=== PATIENT | female | born 1985 | race Caucasian/White ===

== ENCOUNTER 2023-11-06 10:15 | Outpatient (CLI) | payer OTHER, SELFPAY ==
[2023-11-06 18:01] LABS: Chlamydia DNA Amplified* Not Detected (No Detected); GC DNA Amplified* Not Detected (No Detected)
== END 2023-11-06 10:16 | disposition home or self-care (01) ==
PROVIDERS: PCP Family Medicine; Visit Provider Family Medicine
DX: Z11.3 Encounter for screening for infections with a predominantly sexual mode of transmission (principal); I10 Essential (primary) hypertension; E11.9 Type 2 diabetes mellitus without complications; Z13.29 Encounter for screening for other suspected endocrine disorder
CPT/HCPCS: 80053; 80061; 84443; 86703; 87491; 87591

== ENCOUNTER 2023-12-13 10:48 | Outpatient (CLI) | payer OTHER, SELFPAY ==
--- NOTE | 2023-12-13 11:00 | CT_ITS ---
Patient: CHRIS SANTORO Facility:?[facility] Patient ID:?[id number] Site Patient ID:?[id number]. Site :?[id number] Study:?CT-Sinus W/O-12/13/2023 11:30:22 AM Ordering Physician:BRUCE Final Report: Indication: Chronic sinus disease Technique: Performed without IV contrast Comparison: None available Findings: Frontal sinuses: Incompletely developed frontal sinuses. Ethmoid sinuses: Clear. Maxillary sinuses: Mucosal thickening in both maxillary sinuses, left greater than right. The maxillary sinus drainage pathways are patent on both sides. Sphenoid sinuses: Clear, including both sphenoethmoidal recesses. Nasal Cavity: Slight leftward curvature of the nasal septum. No nasal polyps. Paradoxical turn of the left middle turbinate. No TMJ abnormalities identified. The visualized portions of the orbits, intracranial contents and upper soft tissue neck are grossly negative. Impression: 1. Mild bilateral maxillary sinus disease. 2. Slight focal leftward curvature of the nasal septum. Please note that all CT scans at this facility use dose modulation, iterative reconstruction, and/or weight-based dosing when appropriate to reduce radiation dose to as low as reasonably achievable. Dictated by Richie Corral MD @ 12/13/2023 11:57:01 AM Signed by:?Richie Corral MD @12/13/2023 11:57:01 AM (Electronic Signature)
== END 2023-12-13 10:49 | disposition home or self-care (01) ==
LOC: CT 10:49
PROVIDERS: PCP Family Medicine; Visit Provider Otolaryngology
DX: J32.9 Chronic sinusitis, unspecified (principal); J32.0 Chronic maxillary sinusitis; J34.2 Deviated nasal septum
CPT/HCPCS: 70486

== ENCOUNTER 2024-07-24 11:23 | Outpatient (CLI) | payer OTHER, SELFPAY | END 2024-07-24 11:24 | disposition home or self-care (01) | LOC: LKVREF 11:25 | PROVIDERS: PCP Family Medicine; Visit Provider Family Medicine | DX: Z01.818 Encounter for other preprocedural examination (principal) | CPT/HCPCS: 80048 ==

== ENCOUNTER 2024-08-14 11:26 | Day surgery (SDC) | payer OTHER, SELFPAY ==
[2024-08-14] VITALS (12 sets, daily range): BP systolic 119–144; BP diastolic 65–94; PULSE 70–91; RESP 14–20; TEMP 36.1–36.7; O2SAT 96–99; BMI 28.1
[2024-08-14 12:07] LABS: Ur HCG Qualitative* Negative (Negative)
[2024-08-14] MEDS: 0.9 % SODIUM CHLORIDE 500 ML 500 ML 100 ML IV (12:44)
[2024-08-14] MEDS: MUPIROCIN 1 GM PACKET 1 APPLIC TOPICAL (13:13)
[2024-08-14] MEDS: BUPIVACAINE 0.5 %/EPI 1:200K 30 ML INJECTION (13:13)
[2024-08-14] MEDS: COCAINE HCL 4 % 4 ML SOLUTION NOSTRIL-B (13:13)
[2024-08-14] MEDS: AYR SALINE NASAL GEL 1 APPLIC NOSTRIL-B (13:17)
--- NOTE | 2024-08-14 13:29 | W.ANESCHARGE ---
Anesthesia Charges Start Date/Time Anesthesia Start Date: 08/14/24 Anesthesia Start Time: 12:42 Stop Date/Time Anesthesia Stop Date: 08/14/24 Anesthesia Stop Time: 13:42
--- NOTE | 2024-08-14 13:30 | P.ENTPROC_ITS ---
Procedure Note Date of procedure: 08/14/24 Procedure: Preop diagnosis nasal obstruction deviated septum chronic and recurrent left maxillary sinusitis bilateral inferior turbinate hypertrophy Postoperative diagnosis same Procedure nasal septoplasty, submucous partial resection right inferior turbinate, endoscopic left maxillary antrostomy with tissue removal Under general trach anesthesia patient was prepped IV usual fashion the nose decongested injected. The image guidance system had been previously registered. Note that that and a 0 degree endoscope were available throughout the procedure A right hemitransfixion incision was made left anterior posterior tunnels were created. A vertical incision was made through the cartilage and a right posterior tunnel created. The posterior deflected portions of septal bone resected a large piece trimmed returned to intraseptal space. The septum was now midline and the hemitransfixion closed with 2 4-0 chromic sutures A stab incision was made in the anterior left inferior turbinate a tunnel created with a Beatriz dissector. The khadijah bone was outfractured a very conservative anterior submucous resection performed with Amy forceps. The Coblation was used to cauterize intramurally the anterior head and very cons ervatively along the inferior 10%. This was repeated on the right side in identical fashion. The inferior quarter the uncinate process was taken down exposing natural ostium maxillary sinus on the left side. This was occluded by polypoid tissue which was removed and a 1 cm antrostomy created. A moderate amount of inspissated thick mucus was aspirated from the sinus as well as polypoid mucosa. Silastic stents were secured inside the septum with 3-0 nylon and Merocel pack was placed above the stents on each side. The patient procedure was taken recovery in satisfactory condition. Blood loss was 10 mL. The Surgeon: Mamadou Sanderson MD
--- NOTE | 2024-08-14 13:45 | W.ANESCHARGE ---
Anesthesia Charges Start Date/Time Anesthesia Start Date: 08/14/24 Anesthesia Start Time: 12:42 Stop Date/Time Anesthesia Stop Date: 08/14/24 Anesthesia Stop Time: 13:42
[2024-08-14] MEDS: fentaNYL 100 MCG/2 ML inj 50 MCG IVP (14:00)
== END 2024-08-14 15:03 | disposition home or self-care (01) ==
PROVIDERS: PCP Family Medicine; Visit Provider Otolaryngology
PROC: (CPT 31231; principal; 2024-08-14 12:45)
DX: J34.2 Deviated nasal septum (principal); J32.0 Chronic maxillary sinusitis; J34.3 Hypertrophy of nasal turbinates; J34.89 Other specified disorders of nose and nasal sinuses
CPT/HCPCS: 30520; 30140; 31267; 00160; 81025; 82962; 88305; A9270; J1100; J2250; J2405; J2704; J2710; J3010; J3490; J7030

== ENCOUNTER 2025-04-13 08:12 | Outpatient (CLI) | payer OTHER, SELFPAY | END 2025-04-13 08:13 | disposition home or self-care (01) | PROVIDERS: PCP Family Medicine; Visit Provider Family Medicine | DX: I10 Essential (primary) hypertension (principal); E13.9 Other specified diabetes mellitus without complications; E78.5 Hyperlipidemia, unspecified; Z13.29 Encounter for screening for other suspected endocrine disorder | CPT/HCPCS: 80053; 80061; 84443 ==

== ENCOUNTER 2025-09-14 08:49 | Outpatient (CLI) | payer OTHER, SELFPAY | END 2025-09-14 08:50 | disposition home or self-care (01) | LOC: LKVREF 08:50 | PROVIDERS: PCP Family Medicine; Visit Provider Family Medicine | DX: E13.9 Other specified diabetes mellitus without complications (principal) | CPT/HCPCS: 84681 ==